=== PATIENT | female | born 1965 | race Caucasian/White ===

== ENCOUNTER → 2017-06-05 | Outpatient (CLI) | payer BC ==
[~2017-06-05] MED LIST: ATEN50TA8 PO; ATOR-54 PO; LISI-461 PO; OMEGCAP2 PO
--- NOTE | 2017-06-06 14:12 | MAMMOGRAPHY REPORT ---
BILATERAL DIGITAL SCREENING MAMMOGRAM TOMOSYNTHESIS WITH CAD: 06/05/2017 CLINICAL HISTORY: Routine screening. TECHNIQUE: Breast tomosynthesis in addition to standard 2D mammography was performed. Current study was also evaluated with a Computer Aided Detection (CAD) system. COMPARISON: Comparison is made to exams dated: 06/04/2016 mammogram, 05/31/2015 mammogram, and 013 mammogram - [facility]. BREAST COMPOSITION: There are scattered areas of fibroglandular density in both breasts. FINDINGS: No suspicious masses, calcifications, or areas of architectural distortion are noted in ei ther breast. There has been no significant interval change compared to prior exams. IMPRESSION: ACR BI-RADS CATEGORY 1: NEGATIVE There is no mammographic evidence of malignancy. A 1 year screening mammogram is recommended. The pa tient will receive written notification of the results. Approximately 10% of breast cancers are not detected with mammography. A negative mammographic report should not delay biopsy if a clinically suggestive mass is present. Meghan Page M.D. ah/:06/05/2017 15:58:48 [employer] Designer: Magalie KUMARI(R)(M), [facility] letter sent: Normal 1/2 BI-RADS Code: ACR BI-RADS Category 1: Negative
== END | disposition home or self-care (01) ==
LOC: C.MAMM 15:15
PROVIDERS: ATTEND Physician Assistant
DX: Z12.31 Encounter for screening mammogram for malignant neoplasm of breast (principal)

== ENCOUNTER → 2017-06-13 | Day surgery (SDC) | payer BC ==
[2016-10-17 12:39] VITALS: BMI 27.0
[2017-06-04 12:30] VITALS: BMI 27.0
[~2017-06-13] VITALS: Ht 172.7 cm; Wt 82.7 kg
[~2017-06-13] MED LIST changes: +LIDOCAINE HCL 2% 2 ML VIAL (20MG/ML) ONE; +MIDAZOLAM HCL 1 MG/ML 2ML VIAL ONE; +ONDANSETRON INJ 2 MG/ML 2 ML VIAL ONE; +PROPOFOL IV EMULSION 10 MG/ML 20 ML VIAL IV ONE; +SODIUM CHLORIDE 0.9% 500ML 500 ML IV ONE
[2017-06-13 09:21] VITALS: Ht 172.7 cm; Wt 82.7 kg
--- NOTE | 2017-06-13 09:38 | Endo History and Physical ---
History & Physical Date of Service: Jun 13, 2017. Chief Complaint: FAMILY HX COLON CANCER-MOTHER, SCREENING FOR CANCER Referring Physician: DR CORDOVA History of Present Illness 52 yo CF who presents for colonoscopy secondary to family history of colon cancer (Mother). Past Surgical History Hx Cardiac Surgery: No Hx Internal Defibrillator: No Hx Pacemaker: No Hx Abdominal Surgery: Yes (PARTIAL HYSTERECTOMY) Hx of Implantable Prosthesis: No Hx Post-Op Nausea and Vomiting: No Hx Cancer Surgery: No Hx Thoracic Surgery: No Hx Orthopedic: No Hx Urinary Tract Surgery: No Family History Colon CA Social History Smoking Status: Current Every Day Smoker Hx Substance Use: No Hx Alcohol Use: No Allergies Coded Allergies: Penicillins (Verified Allergy, Unknown, THROAT CLOSING, HIVES, 06/04/17) Current Medications Reported Home Medications Medications Dose Route/Sig Max Daily Dose Days Date Category Fish Oil ([place]-3 Fatty Acids) 1 Cap Cap 1 Cap PO HS 10/17/16 Reported Lipitor (Atorvastatin) 20 Mg Tab 20 Mg PO HS 10/17/16 Reported Zestril (Lisinopril) 10 Mg Tab 10 Mg PO QAM 10/17/16 Reported Tenormin (Atenolol) 50 Mg Tab 50 Mg PO QAM 10/17/16 Reported Vital Signs Weight (Kilograms): 82.73 Height (Feet): 5 Height (Inches): 8 Date Time Temp Pulse Resp B/P (MAP) Pulse Ox O2 Delivery O2 Flow Rate FiO2 06/13/17 09:28 36.8 80 20 130/82 (98) 95 Room Air Physical Exam General Appearance: WD/WN, no apparent distress Respiratory/Chest: Auscultation: breath sounds normal Cardiovascular: Heart Auscultation: RRR Abdomen: Bowel Sounds: normal Inspection & Palpation: soft, non-distended, no tenderness, guarding & rebound Assessment and Plan Assessment: 52 yo CF who presents for colonoscopy secondary to family history of colon cancer (Mother). Plan: Proceed with colonoscopy.
--- NOTE | 2017-06-13 10:25 | GI REPORT ---
Procedure Date: 06/13/2017 9:27 AM Procedure: Colonoscopy Indications: Family history of colon cancer in a first-degree relative Medicines: Monitored Anesthesia Care Complications: No immediate complications. Estimated Blood Loss: Estimated blood loss: none. Procedure: Pre-Anesthesia Assessment: - Prior to the procedure, a History and Physical was performed, and patient medications and allergies were reviewed. The patient's tolerance of previous anesthesia was also reviewed. The risks and benefits of the procedure and the sedation options and risks were discussed with the patient. All questions were answered, and informed consent was obtained. Prior Anticoagulants: The patient has taken no previous anticoagulant or antiplatelet agents. ASA Grade Assessment: II - A patient with mild systemic disease. After reviewing the risks and benefits, the patient was deemed in satisfactory condition to undergo the procedure. After I obtained informed consent, the scope was passed under direct vision. Throughout the procedure, the patient's blood pressure, pulse, and oxygen saturations were monitored continuously. The scope was introduced through the anus and advanced to the terminal ileum. The colonoscopy was performed without difficulty. The patient tolerated the procedure well. The quality of the bowel preparation was good. The terminal ileum, ileocecal valve, appendiceal orifice, and rectum were photographed. Findings: The perianal and digital rectal examinations were normal. Seven sessile polyps were found in the rectum and in the sigmoid colon. The polyps were 4 to 10 mm in size. These polyps were removed with a hot snare. Resection and retrieval were complete. Multiple small-mouthed diverticula were found in the sigmoid colon. Non-bleeding internal hemorrhoids were found during retroflexion. The hemorrhoids were small. Impression: - Seven 4 to 10 mm polyps in the rectum and in the sigmoid colon, removed with a hot snare. Resected and retrieved. - Diverticulosis in the sigmoid colon. - Non-bleeding internal hemorrhoids. Recommendation: - Resume previous diet. - Continue present medications. - Repeat colonoscopy for surveillance based on pathology results. - Return to primary care physician as previously scheduled. Juan Gan DO 06/13/2017 10:25:01 AM This report has been signed electronically. Note Initiated On: 06/13/2017 9:27 AM I attest to the content of the Intraoperative Record and orders documented therein, exceptions below
[2017-06-13 10:51] VITALS: BP 124/70; PULSE 69; O2SAT 96
--- NOTE | 2017-06-13 11:00 | Anesthesiology Progress Note ---
Anesthesia Post Op Note Date & Time Jun 13, 2017 at 11:00 Vital Signs Pain Intensity: 0 Vital Signs Past 12 Hours Date Time Temp Pulse Resp B/P (MAP) Pulse Ox O2 Delivery O2 Flow Rate FiO2 06/13/17 10:51 69 20 124/70 (88) 96 Room Air 06/13/17 10:37 77 18 128/66 (86) 94 Room Air 06/13/17 10:23 82 16 91/60 (70) 95 Room Air 06/13/17 09:28 36.8 80 20 130/82 (98) 95 Room Air Notes Mental Status: alert / awake / arousable, participated in evaluation Pt Amnestic to Procedure: Yes Nausea / Vomiting: adequately controlled Pain: adequately controlled Airway Patency, RR, SpO2: stable & adequate BP & HR: stable & adequate Hydration State: stable & adequate Anesthetic Complications: no major complications apparent
--- NOTE | 2017-06-13 11:30 | Discharge Instructions ---
Endoscopy Patient Instructions Date / Procedure(s) Performed Jun 13, 2017. Colonoscopy Allergy Information Coded Allergies: Penicillins (Verified Allergy, Unknown, THROAT CLOSING, HIVES, 06/04/17) Discharge Date / Findings Jun 13, 2017. Colon polyps Rectal polyps Diverticulosis Internal hemorrhoids Medication Instructions OK to resume all medications today as prescribed Reported Home Medications Medications Dose Route/Sig Max Daily Dose Days Date Category Fish Oil ([place]-3 Fatty Acids) 1 Cap Cap 1 Cap PO HS 10/17/16 Reported Lipitor (Atorvastatin) 20 Mg Tab 20 Mg PO HS 10/17/16 Reported Zestril (Lisinopril) 10 Mg Tab 10 Mg PO QAM 10/17/16 Reported Tenormin (Atenolol) 50 Mg Tab 50 Mg PO QAM 10/17/16 Reported Provider Instructions Activity Restrictions - No exercising or heavy lifting for 24 hours. - Do not drink alcohol the day of the procedure. - Do not drive a car or operate machinery until the day after the procedure. - Do not make any important decisions or sign important papers in 24 hours after the procedure. Following Day: - Return to full activity which may include returning to work/school. Diet Start your diet with liquids and light foods (jello, soup, juice, toast). Then eat your usual diet if not nauseated. Treatment For Common After Affects For mild abdominal pain, bloating, or excessive gas: - Rest - Eat lightly - Lie on right side Follow-Up Information Follow-up with DR CORDOVA as scheduled Anesthesia Information What You Should Know You have had a procedure that required some medicine to reduce anxiety and discomfort. This treatment is called moderate sedation. After receiving the treatment, you may be sleepy, but you will be able to breathe on your own. The effects of the treatment may last for several hours. Follow these instructions along with Activity/Diet recommendations noted above: * Do NOT do anything where dizziness or clumsiness would be dangerous. * Rest quietly at home today, then you can be up and about tomorrow. * Have a responsible person stay with you the rest of today. * You may have had an I.V. today. If so, you may take the dressing off later today. Recommendations Call your doctor if: * Trouble breathing * Continuous vomiting for more than 24 hours * Temperature above 101 degrees * Severe abdominal pain or bloating * Pain not relieved by pain medicine ordered * There is increased drainage or redness from any incision * A large amount of rectal bleeding greater than 2-3 tablespoons. (If you had a polyp/s removed or have hemorrhoids, a small amount of blood - from the rectum is to be expected.) * You have any unanswered questions or concerns. IN THE EVENT OF A SERIOUS EMERGENCY, GO TO THE NEAREST EMERGENCY ROOM Your discharge instructions were prepared by provider Juan Gan. Patient Instructions Signature Page Pily Doyle Patient (or Guardian) Signature/Date: I have read and understand the instructions given to me by my caregivers. Caregiver/RN/Doctor Signature/Date: The above-named patient and/or guardian has received patient instructions on this date. + Original Patient Signature Page (only) stays with chart. Please make copy for patient.
== END | disposition home or self-care (01) ==
LOC: C.GI 09:08
PROVIDERS: ATTEND Internal Medicine
DX: Z12.11 Encounter for screening for malignant neoplasm of colon (principal); K62.1 Rectal polyp; D12.5 Benign neoplasm of sigmoid colon; K64.8 Other hemorrhoids; K57.30 Diverticulosis of large intestine without perforation or abscess without bleeding; Z80.0 Family history of malignant neoplasm of digestive organs; Z90.711 Acquired absence of uterus with remaining cervical stump; F17.200 Nicotine dependence, unspecified, uncomplicated; I10 Essential (primary) hypertension; E78.5 Hyperlipidemia, unspecified

== ENCOUNTER 2022-12-10 12:57 | Observation (INO) ==
--- NOTE | 2022-12-10 13:33 | XRay Report ---
XR chest 1V not portable CLINICAL HISTORY: Chest pain, nonspecific TECHNIQUE: Single frontal radiograph of the chest was obtained. Comparison: Comparison is made to chest and abdomen radiographs 11/11/2020 FINDINGS: No lines and tubes are seen. The cardiomediastinal silhouette is normal. The lungs are clear. No evid ence of pleural effusion or pneumothorax. IMPRESSION: No acute chest disease. ACT 112: Negative or not required by law. Electronically signed by: Kris Todd M.D. 12/10/2022 1:32 PM
[2022-12-10 13:37] LABS: Basophils # (auto) 0.04 K/uL (0-0.2); Basophils % (auto) 0.3 %; Eosinophils # (auto) 0.24 K/uL (0-0.50); Eosinophils % (auto) 1.7 %; Hematocrit (blood only) 38.9 % (37.0-47.0); Hemoglobin 13.3 g/dl (12.0-16.0); Immature Granulocytes # (auto) 0.06 K/uL (0.01-0.20); Immature Granulocytes % (auto) 0.4 %; Lymphocytes # (auto) 2.27 K/uL (1.2-3.4); Lymphocytes % (auto) 15.9 %; Mean Corpuscular Hemoglobin 30.9 pg (25.0-34.0); Mean Corpuscular Hgb Conc 34.2 g/dL (32.0-36.0); Mean Corpuscular Volume 90.3 fL (80.0-100.0); Mean Platelet Volume 8.6 fL (9.4-12.4); Monocytes # (auto) 0.89 K/uL (0.11-0.59); Monocytes % (auto) 6.2 %; Neutrophils % (auto) 75.5 %; Platelet Count 342 K/uL (130-400); RDW Coefficient of Variation 12.7 % (11.5-14.5); RDW Standard Deviation 41.7 fL (36.4-46.3); Red Blood Count 4.31 M/uL (4.20-5.40)
[2022-12-10 13:50] LABS: Albumin Globulin Ratio 1.7 (0.9-2); Albumin Level 4.4 gm/dl (3.4-5.0); BUN Creatinine Ratio 14.5 (10-20); Bilirubin,Total 0.3 mg/dl (0.2-1.0); Calcium 9.5 mg/dl (8.6-10.3); Creatinine Clr Calc Pharmacy 84.9 ml/min; Est GFR (African American) 90.1 ml/min; Est GFR (Non-African American) 77.7 ml/min; Globulin 2.6 gm/dl (2.5-4.0); Potassium 4.3 mmol/L (3.5-5.1)
[2022-12-10 13:56] LABS: Troponin I High Sensitivity 3.3 pg/ml (0-14)
[2022-12-10 14:05] LABS: Partial Thromboplastin Ratio 0.9; Partial Thromboplastin Time 25.1 Seconds (21.0-31.0); Prothrombin Time 10.4 Seconds (9.0-12.0)
--- NOTE | 2022-12-10 15:00 | Emergency Department Note ---
Impression & Plan Atypical chest pain, Hypertension, Hyperlipidemia ED Provider Note NAME: AUSTIN COLON AGE: 57 SEX: F : 1965 ARRIVES VIA: Walk-In INFORMANT: Patient, ED PROVIDER(S): Ernesto Rodas MD CHIEF COMPLAINT: Chest pain MEDICAL DECISION MAKING: Patient is presented due to concern for intermittent chest pain over 1 month. IV was established blood was obtained along with an EKG troponin and chest x- ray. Patient's initial EKG and troponin are fairly unremarkable. No obvious ST elevations and troponin is negative. The patient does have risk factors and has moderate risk heart score. I did speak with on-call cardiology Dr. Sewell given the time of day unable to complete his stress echocardiogram at this time. I did discuss inpatient treatment with stress test in the morning versus close outpatient follow-up given the moderate risk heart score. The patient preferred to stay inpatient to have testing completed in the morning. Patient was ordered the rest of the full dose aspirin as the patient had already taken 2 baby aspirin today. I did speak the on-call hospitalist service Dr. Delarosa and the patient was admitted to medicine service. Prior /Outside records reviewed: None Differential diagnosis: Cardiac ischemia, aortic dissection, pulmonary embolism, pneumothorax, pneumonia, pericarditis, myocarditis, esophageal rupture, GERD, cholecystitis, pancreatitis, musculoskeletal, as well as other pathologies. Diagnostics, as interpreted by me: ECG: Normal sinus rhythm, rate of 78, normal intervals normal axis no ST elevations. No significant change for comparison March 04, 2019 Cardiac monitoring: An order was placed for continuous cardiac monitoring. The monitor shows a rate of 72 with sinus rhythm. Patient was placed on pulse oximetry Medical decision rules: HEART score Imaging studies: See below I informally reviewed the patient's chest x-ray which shows no obvious evidence of pneumothorax or pleural effusion. HPI: Patient presents due to concern for chest pain. It has been intermittent in nature over the last month. The patient states that symptoms does wake her from sleep. Patient describes it as left-sided nonradiating occasionally exertional but sometimes not. Patient states that it is burning in nature. The patient has been trialing ibuprofen as well as aspirin and sometimes this does improve her symptoms. Patient denies any falls or trauma. The patient does not complain of reproducible chest wall pain or left upper extremity pain. The patient states that the pain does radiate down her left arm. Patient denies any recent overuse or injury to the left chest or left arm. Patient is right-hand dominant. Patient does have family history of heart attack and stroke before the age of 65. Patient has no known history of heart or lung disease. Patient recently quit smoking about 2 weeks ago. The patient does have a history of hypertension hyperlipidemia. Patient denies any leg swelling or calf pain. No recent surgeries procedures or hospitalizations. PAST MEDICAL HISTORY: See Below PAST SURGICAL HISTORY: See Below SOCIAL HISTORY: See Below HOME MEDICATIONS: See Below ALLERGIES: See Below VITALS: See Below PHYSICAL EXAMINATION: GENERAL: NAD, wearing a mask, non-toxic. EYE EXAM: Normal conjunctiva. PERRL, no anisocoria and EOM's grossly intact w/o pain. NECK: Supple, no nuchal rigidity, no adenopathy, non-tender. No signs of meningismus. FROM of the neck with good chin to chest and neck extension. No stridor. LUNGS: Clear to auscultation. Normal chest wall mechanics. Chest: No reproducible anterior chest wall pain HEART: NSR, no MRG. ABDOMEN: Abdomen soft, non-tender, no masses, no rebound or guarding. BACK: No CVA TTP. SKIN: No rashes and no bruising. UPPER EXTREMITIES: Upper extremities are grossly normal. No reproducible left upper extremity pain. LOWER EXTREMITIES: Grossly normal, no edema. Negative Homans' sign bilaterally. NEURO EXAM: A&O x3, cranial nerves II-XII grossly intact, normal speech, moves all 4 extremities. Past Med/Surg History Medical History History of colon polyps Hyperlipidemia Hypertension Surgical History History of colonoscopy (11/2020) +TBA, 2 HP History of detached retina repair R eye History of hysterectomy with unilateral oophorectomy still w/ R ovary Hx of bilateral cataract extraction Family History Mother , age 71 Colorectal cancer, Onset Age: 69 Diabetes Glaucoma Sister Diabetes Father , age 81 Coronary heart disease S/P coronary artery bypass graft x 4 Myocardial infarction Social History Smoking Status: Former smoker Tobacco Type: Cigarettes Age Started Using Tobacco: 29; Cigarettes Per Day: 7; Smoking End Date: 2 weeks ago; Second Hand Exposure: No; Hx Alcohol Use: Yes Hx Substance Use: No Preferred Language: Mongolian Communication Ability: Effective Hearing Ability: Normal Conference Organizer Required: No Beliefs That Will Affect Care: None marital status: marital status details: previously Current Living Situation: Spouse current occupational status: employed current occupation: [employer] How many Children do You have: 1 How many Children do You have Comment: son age 21 Other Information That Helps Us Care for You: No Feels Safe at Home: Yes Safety Concerns: Feels Safe At This Time Childhood Exposure to Second-Hand Smoke: Yes caffeine: Yes during the past year weight has: remained stable Dental Care, Regularly: Yes Physical Activity Frequency: Daily Seatbelt Use: always Sunscreen Use: Yes Assistive Devices: Denture - Upper Allergies Allergies Allergy/AdvReac Type Severity Reaction Status Date / Time sulfamethoxazole Allergy Mild Hives Verified 12/10/22 16:25 [From Bactrim] trimethoprim [From Bactrim] Allergy Mild Hives Verified 12/10/22 16:25 Penicillins Allergy Unknown THROAT Verified 12/10/22 16:25 CLOSING, HIVES Home Meds Home Medications Medication Instructions Recorded Confirmed ezetimibe 10 mg tablet 10 mg PO HS 12/10/22 12/10/22 Previous Rx's Medication Instructions Recorded betamethasone dipropionate 0.05 % 1 applic topical BID PRN rash #45 09/24/21 topical cream grams atenolol 50 mg tablet 50 mg PO QAM #30 tabs 09/25/22 atorvastatin 10 mg tablet 10 mg PO PM #30 tabs 09/25/22 lisinopril 10 mg tablet 10 mg PO QAM #30 tabs 09/25/22 nicotine 14 mg/24 hr daily 1 patch transdermal DAILY #28 ea 12/10/22 transdermal patch Results & Data (ED) Vital Signs Vital Signs - 24 hr 12/10/22 13:02 12/10/22 15:11 12/10/22 15:06 Temperature 36.5 C Temperature Source Temporal Artery Scan Pulse Rate 83 72 Pulse Rate from SpO2 Sensor 72 Pulse Rhythm Regular Respiratory Rate 20 12 Respiratory Effort / Characteristics Non-Labored Spontaneous Respiratory Depth Normal Respiratory Pattern Regular Blood Pressure 176/90 H Blood Pressure Mean 118 Pulse Oximetry 97 99 Oxygen Delivery Method Room Air Room Air Sepsis Recent Fever Within 48 Hours No Sepsis New/Unexplained Change in Mental Status No Sepsis Action Taken by Nursing No Action Required 12/10/22 15:30 12/10/22 16:00 12/10/22 16:24 Temperature Temperature Source Pulse Rate 72 69 75 Pulse Rate from SpO2 Sensor 72 70 Pulse Rhythm Respiratory Rate 17 17 Respiratory Effort / Characteristics Respiratory Depth Respiratory Pattern Blood Pressure Blood Pressure Mean Pulse Oximetry 98 97 Oxygen Delivery Method Sepsis Recent Fever Within 48 Hours Sepsis New/Unexplained Change in Mental Status Sepsis Action Taken by Snf Medications Current Medication List: was personally reviewed by me Laboratory Data Attestation: I reviewed the patient's lab results. 12/10/22 13:07 12/10/22 13:07 Lab Results 12/10/22 12/10/22 12/10/22 Range/Units 13:07 13:07 13:07 WBC 14.30 H (4.8-10.8) K/ul RBC 4.31 (4.20-5.40) M/uL Hgb 13.3 (12.0-16.0) g/dl Hct 38.9 (37.0-47.0) % MCV 90.3 (80.0-100.0) fL MCH 30.9 (25.0-34.0) pg MCHC 34.2 (32.0-36.0) g/dL RDW Std Deviation 41.7 (36.4-46.3) fL RDW Coeff of Mello 12.7 (11.5-14.5) % Plt Count 342 (130-400) K/uL MPV 8.6 L (9.4-12.4) fL Immature Gran % (Auto) 0.4 % Neut % (Auto) 75.5 % Lymph % (Auto) 15.9 % Winkler % (Auto) 6.2 % Eos % (Auto) 1.7 % Baso % (Auto) 0.3 % Neut # (Auto) 10.80 H (1.40-6.50) K/uL Lymph # (Auto) 2.27 (1.2-3.4) K/uL Winkler # (Auto) 0.89 H (0.11-0.59) K/uL Eos # (Auto) 0.24 (0-0.50) K/uL Baso # (Auto) 0.04 (0-0.2) K/uL Immature Gran # (Auto) 0.06 (0.01-0.20) K/uL PT 10.4 (9.0-12.0) Seconds INR 1.0 (0.9-1.1) APTT 25.1 (21.0-31.0) Seconds PTT Ratio 0.9 Sodium 141 (136-145) mmol/L Potassium 4.3 (3.5-5.1) mmol/L Chloride 107 (98-107) mmol/L Carbon Dioxide 28 (21-32) mmol/L Anion Gap 6 (3-11) BUN 12 (6-23) mg/dl Creatinine 0.83 (0.6-1.2) mg/dl Est Cr Clr Drug Dosing 84.9 ml/min Est GFR ( Amer) 90.1 ml/min Est GFR (Non-Af Amer) 77.7 ml/min BUN/Creatinine Ratio 14.5 (10-20) Glucose 101 H (70-99(Fasting)) mg/dl Calcium 9.5 (8.6-10.3) mg/dl Total Bilirubin 0.3 (0.2-1.0) mg/dl AST 13 (13-39) U/L ALT 16 (7-52) U/L Alkaline Phosphatase 64 (34-104) U/L Troponin I High Sens 3.3 (0-14) pg/ml Total Protein 7.0 (6.0-8.3) gm/dl Albumin 4.4 (3.4-5.0) gm/dl Globulin 2.6 (2.5-4.0) gm/dl Albumin/Globulin Ratio 1.7 (0.9-2) SARS-CoV-2, RNA, NAAT (NEGATIVE) 12/10/22 Range/Units 16:00 WBC (4.8-10.8) K/ul RBC (4.20-5.40) M/uL Hgb (12.0-16.0) g/dl Hct (37.0-47.0) % MCV (80.0-100.0) fL MCH (25.0-34.0) pg MCHC (32.0-36.0) g/dL RDW Std Deviation (36.4-46.3) fL RDW Coeff of Mello (11.5-14.5) % Plt Count (130-400) K/uL MPV (9.4-12.4) fL Immature Gran % (Auto) % Neut % (Auto) % Lymph % (Auto) % Winkler % (Auto) % Eos % (Auto) % Baso % (Auto) % Neut # (Auto) (1.40-6.50) K/uL Lymph # (Auto) (1.2-3.4) K/uL Winkler # (Auto) (0.11-0.59) K/uL Eos # (Auto) (0-0.50) K/uL Baso # (Auto) (0-0.2) K/uL Immature Gran # (Auto) (0.01-0.20) K/uL PT (9.0-12.0) Seconds INR (0.9-1.1) APTT (21.0-31.0) Seconds PTT Ratio Sodium (136-145) mmol/L Potassium (3.5-5.1) mmol/L Chloride (98-107) mmol/L Carbon Dioxide (21-32) mmol/L Anion Gap (3-11) BUN (6-23) mg/dl Creatinine (0.6-1.2) mg/dl Est Cr Clr Drug Dosing ml/min Est GFR ( Amer) ml/min Est GFR (Non-Af Amer) ml/min BUN/Creatinine Ratio (10-20) Glucose (70-99(Fasting)) mg/dl Calcium (8.6-10.3) mg/dl Total Bilirubin (0.2-1.0) mg/dl AST (13-39) U/L ALT (7-52) U/L Alkaline Phosphatase (34-104) U/L Troponin I High Sens (0-14) pg/ml Total Protein (6.0-8.3) gm/dl Albumin (3.4-5.0) gm/dl Globulin (2.5-4.0) gm/dl Albumin/Globulin Ratio (0.9-2) SARS-CoV-2, RNA, NAAT NEGATIVE (NEGATIVE) Administered Medications Atorvastatin Calcium (Atorvastatin 10 Mg Tab) 10 mg PO PM FREDY Stop: 01/09/23 20:59 Last Admin: 12/10/22 21:48 Dose: 10 mg Documented By: MAGDALENA Ezetimibe (Ezetimibe 10 Mg Tablet) 10 mg PO HS FREDY Stop: 01/09/23 20:59 Last Admin: 12/10/22 21:48 Dose: 10 mg Documented By: MAGDALENA Pantoprazole Sodium 40 mg/ (Syringe) 10 mls @ 5 mls/min IV BID FREDY Stop: 01/09/23 20:59 Last Admin: 12/10/22 21:48 Dose: 5 mls/min Documented By: MAGDALENA Famotidine 20 mg/ Syringe 5 mls @ 2.5 mls/min IV Q12 FREDY Stop: 01/09/23 20:59 Last Admin: 12/10/22 21:48 Dose: 2.5 mls/min Documented By: MAGDALENA Discontinued Medications Al Hydrox/Mg Hydrox/Simethicone (Gi Cocktail Ed Use) Confirm Administered Dose 1 dose PO .STK-MED ONE Stop: 12/10/22 18:38 Last Admin: 12/10/22 18:40 Dose: 1 dose Documented By: KARMA Aspirin (Aspirin Chew 324 Mg) 162 mg PO NOW STA Stop: 12/10/22 15:59 Last Admin: 12/10/22 16:09 Dose: 162 mg Documented By: KARMA Al Hydrox/Mg Hydrox/Simethicone 18 ml/ Lidocaine HCl 6 ml/ BARCODE IDENTIFIER 1 each 0 ml PO ONE ONE Stop: 12/10/22 17:45 Last Admin: 12/10/22 18:40 Dose: Not Given Documented By: KARMA Pantoprazole Sodium 40 mg/ (Syringe) 10 mls @ 5 mls/min IV NOW ONE Stop: 12/10/22 15:59 Last Admin: 12/10/22 16:26 Dose: 5 mls/min Documented By: KARMA Imaging Data Radiologist's Impression: Chest X-Ray 12/10/22 13:02 XR chest 1V not portable CLINICAL HISTORY: Chest pain, nonspecific TECHNIQUE: Single frontal radiograph of the chest was obtained. Comparison: Comparison is made to chest and abdomen radiographs 11/11/2020 FINDINGS: No lines and tubes are seen. The cardiomediastinal silhouette is normal. The lungs are clear. No evidence of pleural effusion or pneumothorax. IMPRESSION: No acute chest disease. ACT 112: Negative or not required by law. Electronically signed by: Kris Todd M.D. 12/10/2022 1:32 PM Discharge Plan Visit Data Chief Complaint: Chest Pain Stated Complaint: CHEST PAINS AND PAIN DOWN ARM ED Provider: Ernesto Rodas Discharge Problem: Atypical chest pain, Hypertension, Hyperlipidemia Patient Disposition: Admitted As Inpatient Discharge Instructions Interventions: ED Discharge Assessment Last Done: 12/10/22 17:35
[2022-12-10] MEDS ORDERED: PANTOprazole 40 MG in SYRINGE 0 ML IV ONE (15:58)
[2022-12-10] MEDS ORDERED: ASPIRIN CHEW 324 MG PO STA (15:58)
--- NOTE | 2022-12-10 16:14 | History & Physical Report ---
Date of Service December 10, 2022 Assessment & Plan (1) Chest pain: Plan: 57-year-old female with extensive family history of ME, hyperlipidemia, hypertension who presents for evaluation of recurring chest pain at night, and shortness of breath with reduced exercise tolerance during the day. Chest pain Patient with multiple episodes increasing of chest pain which radiates to her left arm and neck. These are associated with sweating, but not shortness of breath at night. She has noted some additional worsening shortness of breath trying to go up and down stairs in the last month She has been taking ibuprofen, Motrin, Tylenol, and Advil for her pain at [facility]. Discussed that ibuprofen/Motrin/Advil are all the same medication, and she is taking supratherapeutic doses which can worsen gastritis and also be bad for her kidneys and heart. She reports she thinks this sometimes helps pain in her shoulder, but does not help her nighttime episodes Troponin 3.3 on admission, highly reassuring. 2-hour troponin pending EKG without acute findings of ischemia Moderate risk heart score Patient's symptoms have lasted 10 to 15 minutes, it is possible that these were nonsustained because of elevated troponin and she does have a very high risk family history with multiple deaths around her age however ongoing symptoms, severe episodes overnight, negative normal EKG are all reassuring for noncardiac. Reviewed with patient; due to her multiple family deaths and additional worsening shortness of breath going up stairs which seems separate she is not comfortable following up as an outpatient for stress test. We will order a.m. treadmill stress test based on moderate risk rule out Troponins trended overnight No heparinization indicated GERD treatment as noted Gastritis Patient taking up to 10 aspirin daily in addition to multiple forms of ibuprofen for shoulder pain without significant benefit. Counseled that these are all NSAIDs, and harmful to her stomach and be harmful to her heart and kidneys No JAMES on admission PPI, Pepcid, GI cocktail ordered Hypertension Continue home meds Hyperlipidemia Continue is Atimos/atorvastatin DVT prophylaxis: Lovenox Diet: Heart healthy, n.p.o. at midnight for stress test Disposition: Medical telemetry CODE STATUS: Full code (2) History of colon polyps: (3) Hypertension: (4) Gastritis: History of Present Illness Primary Care Provider: DO Pily Gardner is a 57yo F who presents recurrent chest pain. "Ching" Irish report she has had chest pain in her chest with shoots into her neck and L arm, and she is very hot and sweaty when it happens. Lasts 10-15 minutes and hurt 20/10, and gradually recents. No pain at bedside. She has been trying tylenol, advil, and ibuprofen but has not helped much. Symptoms are gradually worsening, and seem to be worse at night. In the last week she has had increased shortness of breath and difficulty going up a flight of stairs, but she does not bring out her chest pain. 10x aspirin per day and 2x 600mg ibuprofen per day, and 6x tylenol per day, and 6x motrin per day which does seem to help her pain. NSAIDs/Tylenol do make the pain improve, but notes her pain recurrs at night and she has to raise her head above her head to get the pain to go away. Has been doin this for one month. Hx HTN, did take this morning HLD: On atorvastain No other medical problems Smoked 25years, ~0.75ppd. Quit tobacco 2 weeks, doing well with a patch. Was scared because brother 1yr has had 6x ME with 7 stents, older sister by 8 years has had 3x ME with stents and hypothermia protocol and recovery with memory loss, father passed of cardiac arrest after quadrule bipass followed by repeat ME 3 months later, mother with DM HTN and of cancer. +epigastric pain with ibuprofen and aspirin use. no melena or brbpr. +loose bowels sometimes green sometimes brown +old systolic murmur NO history of blood clots. No pain with breathing. no orthopnea. Had covid 2 years ago Medical History: Reviewed Medications: Reviewed Surgical History: Reviewed. hx hysterectomy at age 39. Retinal detachment replacement, cataract bilaterally. Family history: Reviewed, see above Allergies: Reviewed. PCN. No contrast allergy. Social History: Recent tobacco cessaion, no etoh Code Status:Full Code Allergies Allergy/AdvReac Type Severity Reaction Status Date / Time sulfamethoxazole Allergy Mild Hives Verified 12/10/22 16:25 [From Bactrim] trimethoprim [From Bactrim] Allergy Mild Hives Verified 12/10/22 16:25 Penicillins Allergy Unknown THROAT Verified 12/10/22 16:25 CLOSING, HIVES Home Medications Medication Instructions Recorded Confirmed Type betamethasone dipropionate 0.05 % 1 applic topical BID PRN rash #45 09/24/21 12/10/22 Rx topical cream grams atenolol 50 mg tablet 50 mg PO QAM #30 tabs 09/25/22 12/10/22 Rx atorvastatin 10 mg tablet 10 mg PO PM #30 tabs 09/25/22 12/10/22 Rx lisinopril 10 mg tablet 10 mg PO QAM #30 tabs 09/25/22 12/10/22 Rx ezetimibe 10 mg tablet 10 mg PO HS 12/10/22 12/10/22 History nicotine 14 mg/24 hr daily 1 patch transdermal DAILY #28 ea 12/10/22 Rx transdermal patch Past Med/Surg History Medical History History of colon polyps Hyperlipidemia Hypertension Surgical History History of colonoscopy (11/2020) +TBA, 2 HP History of detached retina repair R eye History of hysterectomy with unilateral oophorectomy still w/ R ovary Hx of bilateral cataract extraction Family History Mother , age 71 Colorectal cancer, Onset Age: 69 Diabetes Glaucoma Sister Diabetes Father , age 81 Coronary heart disease S/P coronary artery bypass graft x 4 Myocardial infarction Social History Smoking Status: Current every day smoker Tobacco Type: Cigarettes Age Started Using Tobacco: 29; Cigarettes Per Day: 5-7; Second Hand Exposure: No; Hx Alcohol Use: No Hx Substance Use: No Preferred Language: Ethiopian Communication Ability: Effective Hearing Ability: Normal 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 NAD. Cooperative. HEENT: Atraumatic, normocephalic. Pupils equal and reactive to light. Vision and hearing grossly intact Pulm: CTAB A&P. -wheezes, -rales, -rhonchi. Symmetrical chest rise. No increased work of breathing. No respiratory distress. Cardiac: RRR, systolic murmur. Radial pulses intact and symmetrical. Abdominal: Epigastric tenderness on palpation, otherwise nondistended/soft/no rebound/nontender in other quadrants Extremities: No edema. Sensation of soft touch intact in hands and feet. Moves all extremities equally Results & Data Results & Data Vital Signs (Past 12 Hours) Vital Signs Temp Pulse Resp BP Pulse Ox O2 Del Method 12/10/22 15:11 Room Air 12/10/22 13:02 36.5 C 83 20 176/90 H 97 Room Air PG Care Time/CCT Total # of Minutes Spent Total Time Spent with Patient: Total time spent is greater than 50% in coordination of care (as documented) at patient's floor/unit and/or counseling patient: Coding Level of Care Code 65983 INT INP/OBS CARE 2/55MIN Diagnoses Chest pain R07.9 History of colon polyps Z86.010 Hypertension I10 Gastritis K29.70
[2022-12-10] MEDS ORDERED: ALUMINUM/MAGNESIUM SUSP 18 ML, LIDOCAINE VISCOUS 2% SOLN 6 ML, BARCODE IDENTIFIER 1 EACH PO ONE (17:44)
[2022-12-10] MEDS ORDERED: GI COCKTAIL ED USE PO ONE (18:37)
[2022-12-10] MEDS ORDERED: ATORVASTATIN 10 MG TAB PO SCH (21:00)
[2022-12-10] MEDS: FAMOTIDINE 20 MG in SYRINGE 3 ML IV SCH (21:48)
[2022-12-10] MEDS: PANTOprazole 40 MG in SYRINGE 0 ML IV SCH (21:48)
[2022-12-10] MEDS: EZETIMIBE 10 MG TABLET PO SCH (21:48)
[2022-12-11 07:39] LABS: Basophils # (auto) 0.03 K/uL (0-0.2); Basophils % (auto) 0.3 %; Eosinophils # (auto) 0.18 K/uL (0-0.50); Eosinophils % (auto) 1.8 %; Hemoglobin 12.7 g/dl (12.0-16.0); Immature Granulocytes # (auto) 0.03 K/uL (0.01-0.20); Immature Granulocytes % (auto) 0.3 %; Lymphocytes # (auto) 1.71 K/uL (1.2-3.4); Lymphocytes % (auto) 16.9 %; Mean Corpuscular Hemoglobin 30.2 pg (25.0-34.0); Mean Corpuscular Hgb Conc 33.4 g/dL (32.0-36.0); Mean Corpuscular Volume 90.3 fL (80.0-100.0); Mean Platelet Volume 8.7 fL (9.4-12.4); Monocytes # (auto) 0.74 K/uL (0.11-0.59); Monocytes % (auto) 7.3 %; Neutrophils # (auto) 7.45 K/uL (1.40-6.50); Neutrophils % (auto) 73.4 %; Platelet Count 286 K/uL (130-400); RDW Coefficient of Variation 12.7 % (11.5-14.5); RDW Standard Deviation 41.6 fL (36.4-46.3); Red Blood Count 4.21 M/uL (4.20-5.40); White Blood Count 10.14 K/ul (4.8-10.8)
[2022-12-11 07:43] LABS: BUN Creatinine Ratio 13.1 (10-20); Creatinine Clr Calc Pharmacy 72.5 ml/min; Est GFR (African American) 72.8 ml/min; Est GFR (Non-African American) 62.8 ml/min; Potassium 4.4 mmol/L (3.5-5.1)
[2022-12-11] MEDS ORDERED: ATENOLOL 50 MG TABLET PO SCH (09:00)
[2022-12-11] MEDS ORDERED: NITROGLYCERIN SL 0.4 MG/TAB TAB ONE ×2 (09:51→09:52)
--- NOTE | 2022-12-11 10:16 | Pre Anesthesia Assessment ---
Date of Service December 11, 2022 Pre Sedation Assessment Vital Signs Temp Pulse Pulse Pulse Resp BP BP 12/11/22 08:36 37.0 C 76 18 133/75 12/11/22 03:45 36.7 C 69 16 114/68 12/10/22 22:20 70 12/10/22 22:34 36.7 C 71 18 146/72 H 12/10/22 22:10 36.7 C 74 16 140/76 12/10/22 16:24 75 12/10/22 16:00 69 17 12/10/22 15:30 72 17 12/10/22 15:06 72 12 12/10/22 15:11 12/10/22 13:02 36.5 C 83 20 176/90 H Pulse Ox O2 Del Method 12/11/22 08:36 94 Room Air 12/11/22 03:45 94 Room Air 12/10/22 22:20 12/10/22 22:34 96 Room Air 12/10/22 22:10 96 Room Air 12/10/22 16:24 12/10/22 16:00 97 12/10/22 15:30 98 12/10/22 15:06 99 12/10/22 15:11 Room Air 12/10/22 13:02 97 Room Air Cardiovascular + regular rate and + regular rhythm Respiratory + respiratory effort normal Pre-Sedation Airway Assessment Smoking Status: Former smoker Hx Sleep Apnea: No Hx Difficult Intubation: No Short, Thick Neck: No Thyromental Distance: > or= 3.5 Finger Breadths Oral Cavity: + WNL Mallampati Class: III ASA: ASA3 Procedure Planning Contraindications for Sedation: none Current Medications Reviewed: Yes Notes The planned sedation has been discussed with the patient. Informed Consent was obtained. I have identified the patient, determined the appropriateness of sedation and have assessed the patient immediately prior to the procedure. All medicine(s) and interventions are by my order.
[2022-12-11] MEDS: lisinopril 10 MG TAB PO SCH (10:41)
[2022-12-11] MEDS: PANTOprazole 40 MG in SYRINGE 0 ML IV SCH ×2 (10:41→20:13)
[2022-12-11] MEDS: NICOTINE 14 MG/24 HR PATCH TD SCH (10:45)
[2022-12-11] MEDS: FAMOTIDINE 20 MG in SYRINGE 3 ML IV SCH ×2 (10:52→20:17)
[2022-12-11] MEDS ORDERED: niCARdipine HCL INJ 2.5 MG/ML 10 ML AMP ONE (11:37)
[2022-12-11] MEDS ORDERED: MIDAZOLAM HCL 1 MG/ML 2ML VIAL ONE (11:37)
[2022-12-11] MEDS ORDERED: NITROGLYCERIN/D5W 100MCG/ML 20ML SYR ONE (11:37)
[2022-12-11] MEDS ORDERED: fentaNYL citrate PF 100 MCG/2 ML VIAL ONE (11:37)
[2022-12-11] MEDS ORDERED: HEPARIN (PORCINE) 1000 UNIT/ML 10 ML (CATH LAB USE ONLY) ONE (11:37)
--- NOTE | 2022-12-11 11:43 | Cardiology Consultation ---
Date of Consultation December 11, 2022 Assessment & Plan (1) Chest pain: (2) Hypertension: (3) Hyperlipidemia: Plan 1. Chest pain: Certainly she has atypical features. The symptoms occur at rest and are fairly short-lived. However, she did have some exertional symptoms today associated with notable EKG changes. Her symptoms resolved with administration of nitroglycerin. EKG changes also resolved at that time. Curiously the echo images did not demonstrate obvious ischemia. However, considering the persistent nature of her symptoms, her risk factors and family history she has elected to undergo invasive testing to exclude coronary disease. #2. Hypertension #3. Hyperlipidemia History of Present Illness Reason for Consultation: Chest pain Requesting Physician: Lana Attending Physician: Deniz Schwartz MD History of Present Illness The patient is a 57-year-old woman with a history of hypertension hyperlipidemia who has been experiencing symptoms of left-sided chest discomfort for several weeks. The patient states that her symptoms occur primarily at rest. Often times at nighttime. Is described as a fairly severe discomfort in the left upper precordium and left arm. Occasionally it is associated with activity. She cannot describe any specific activity which reliably reproduces her symptoms. The episodes themselves last between 10 and 15 minutes and often respond to aspirin therapy. Some mild dyspnea as well. She believes the symptoms are becoming more frequent and perhaps longer lasting recently. She presented to the emergency room yesterday for an evaluation. There were no objective findings of ischemia yesterday. She underwent exercise echocardiography today which did reproduce her symptoms. The symptoms occurred immediately after exercise. At the time she had her symptoms she had significant EKG changes concerning for ischemia. Based on the nature of her symptoms and stress test findings she was advised to consider coronary angiography. She admits to being more sedentary recently. In the past she performed regular exercise. She has a history of tobacco use. She does not describe orthopnea. No palpitations. No syncope. Allergies Allergy/AdvReac Type Severity Reaction Status Date / Time sulfamethoxazole Allergy Mild Hives Verified 12/10/22 16:25 [From Bactrim] trimethoprim [From Bactrim] Allergy Mild Hives Verified 12/10/22 16:25 Penicillins Allergy Unknown THROAT Verified 12/10/22 16:25 CLOSING, HIVES Home Medications Medication Instructions Recorded Confirmed Type betamethasone dipropionate 0.05 % 1 applic topical BID PRN rash #45 09/24/21 12/10/22 Rx topical cream grams atenolol 50 mg tablet 50 mg PO QAM #30 tabs 09/25/22 12/10/22 Rx atorvastatin 10 mg tablet 10 mg PO PM #30 tabs 09/25/22 12/10/22 Rx lisinopril 10 mg tablet 10 mg PO QAM #30 tabs 09/25/22 12/10/22 Rx ezetimibe 10 mg tablet 10 mg PO HS 12/10/22 12/10/22 History nicotine 14 mg/24 hr daily 1 patch transdermal DAILY #28 ea 12/10/22 Rx transdermal patch Patient History Medical History History of colon polyps Hyperlipidemia Hypertension Surgical History History of colonoscopy (11/2020) +TBA, 2 HP History of detached retina repair R eye History of hysterectomy with unilateral oophorectomy still w/ R ovary Hx of bilateral cataract extraction Family History Mother , age 71 Colorectal cancer, Onset Age: 69 Diabetes Glaucoma Sister Diabetes Father , age 81 Coronary heart disease S/P coronary artery bypass graft x 4 Myocardial infarction Social History Smoking Status: Former smoker Tobacco Type: Cigarettes Age Started Using Tobacco: 29; Cigarettes Per Day: 7; Smoking End Date: 2 weeks ago; Second Hand Exposure: No; Hx Alcohol Use: Yes Hx Substance Use: No Preferred Language: Luxembourger Communication Ability: Effective Hearing Ability: Normal 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 Beliefs That Will Affect Care: None marital status: marital status details: previously Current Living Situation: Spouse current occupational status: employed current occupation: [employer] How many Children do You have: 1 How many Children do You have Comment: son age 21 Other Information That Helps Us Care for You: No Feels Safe at Home: Yes Safety Concerns: Feels Safe At This Time Childhood Exposure to Second-Hand Smoke: Yes caffeine: Yes during the past year weight has: remained stable Dental Care, Regularly: Yes Physical Activity Frequency: Daily Seatbelt Use: always Sunscreen Use: Yes Assistive Devices: Denture - Upper Review of Systems Review of Systems: Per HPI Physical Exam Physical Exam: She is alert and oriented x3. Mood affect appear normal. She answered all questions appropriately. HEENT: Sclerae are anicteric. Pupils are equal and reactive to light and accommodation. Extraocular movements were intact. Neuro: Cranial nerves intact Lungs: Lungs are clear to auscultation bilaterally. There are no rales wheezes or rhonchi. She has normal respiratory effort without use of accessory muscles. There is normal pulmonary excursion. Cardiac: The rhythm was regular. S1 and S2 were normal. There are no murmurs on examination. The PMI was not markedly displaced on palpation. Extremities: Patient has bilateral radial pulses that are equal in intensity. There is no evidence cyanosis or clubbing. There was no evidence of significant peripheral edema bilaterally. Skin: There are no rashes noted on examination today. Results & Data Vital Signs (Past 12 Hours) Vital Signs Temp Pulse Pulse Resp BP Pulse Ox O2 Del Method 12/11/22 11:04 71 12/11/22 08:36 37.0 C 76 18 133/75 94 Room Air 12/11/22 03:45 36.7 C 69 16 114/68 94 Room Air Laboratory Results Abnormal Lab Results 12/10/22 12/10/22 12/10/22 13:07 13:07 13:07 WBC 14.30 H RBC 4.31 Hgb 13.3 Hct 38.9 MCV 90.3 MCH 30.9 MCHC 34.2 RDW Std Deviation 41.7 RDW Coeff of Mello 12.7 Plt Count 342 MPV 8.6 L Immature Gran % (Auto) 0.4 Neut % (Auto) 75.5 Lymph % (Auto) 15.9 Sullivan % (Auto) 6.2 Eos % (Auto) 1.7 Baso % (Auto) 0.3 Neut # (Auto) 10.80 H Lymph # (Auto) 2.27 Sullivan # (Auto) 0.89 H Eos # (Auto) 0.24 Baso # (Auto) 0.04 Immature Gran # (Auto) 0.06 PT 10.4 INR 1.0 APTT 25.1 PTT Ratio 0.9 Sodium 141 Potassium 4.3 Chloride 107 Carbon Dioxide 28 Anion Gap 6 BUN 12 Creatinine 0.83 Est Cr Clr Drug Dosing 84.9 Est GFR ( Amer) 90.1 Est GFR (Non-Af Amer) 77.7 BUN/Creatinine Ratio 14.5 Glucose 101 H Calcium 9.5 Total Bilirubin 0.3 AST 13 ALT 16 Alkaline Phosphatase 64 Troponin I High Sens 3.3 Total Protein 7.0 Albumin 4.4 Globulin 2.6 Albumin/Globulin Ratio 1.7 SARS-CoV-2, RNA, NAAT 12/10/22 12/10/22 12/11/22 16:00 17:18 01:09 WBC RBC Hgb Hct MCV MCH MCHC RDW Std Deviation RDW Coeff of Mello Plt Count MPV Immature Gran % (Auto) Neut % (Auto) Lymph % (Auto) Sullivan % (Auto) Eos % (Auto) Baso % (Auto) Neut # (Auto) Lymph # (Auto) Sullivan # (Auto) Eos # (Auto) Baso # (Auto) Immature Gran # (Auto) PT INR APTT PTT Ratio Sodium Potassium Chloride Carbon Dioxide Anion Gap BUN Creatinine Est Cr Clr Drug Dosing Est GFR ( Amer) Est GFR (Non-Af Amer) BUN/Creatinine Ratio Glucose Calcium Total Bilirubin AST ALT Alkaline Phosphatase Troponin I High Sens 3.3 3.3 Total Protein Albumin Globulin Albumin/Globulin Ratio SARS-CoV-2, RNA, NAAT NEGATIVE 12/11/22 12/11/22 12/11/22 06:53 06:53 06:53 WBC 10.14 RBC 4.21 Hgb 12.7 Hct 38.0 MCV 90.3 MCH 30.2 MCHC 33.4 RDW Std Deviation 41.6 RDW Coeff of Mello 12.7 Plt Count 286 MPV 8.7 L Immature Gran % (Auto) 0.3 Neut % (Auto) 73.4 Lymph % (Auto) 16.9 Sullivan % (Auto) 7.3 Eos % (Auto) 1.8 Baso % (Auto) 0.3 Neut # (Auto) 7.45 H Lymph # (Auto) 1.71 Sullivan # (Auto) 0.74 H Eos # (Auto) 0.18 Baso # (Auto) 0.03 Immature Gran # (Auto) 0.03 PT INR APTT PTT Ratio Sodium 141 Potassium 4.4 Chloride 106 Carbon Dioxide 30 Anion Gap 5 BUN 13 Creatinine 0.99 Est Cr Clr Drug Dosing 72.5 Est GFR ( Amer) 72.8 Est GFR (Non-Af Amer) 62.8 BUN/Creatinine Ratio 13.1 Glucose 115 H Calcium 9.0 Total Bilirubin AST ALT Alkaline Phosphatase Troponin I High Sens 3.7 Total Protein Albumin Globulin Albumin/Globulin Ratio SARS-CoV-2, RNA, NAAT Diagnostic Findings Exercise echocardiogram performed today: Patient exercised for 3 minutes. She did achieve target heart rate and exercise was discontinued due to dyspnea. Shortly after she did develop her typical symptoms associated with ST segment depressions. Echo images did not reveal ischemia or inducible wall motion abnormality. PG Care Time/CCT Total # of Minutes Spent Total Time Spent with Patient: Total time spent is greater than 50% in coordination of care (as documented) at patient's floor/unit and/or counseling patient: Coding Diagnoses Chest pain R07.9 Hypertension I10 Hypertension type: unspecified Hyperlipidemia E78.5 Hyperlipidemia type: unspecified (2) Hypertension Hypertension type: unspecified Qualified Code(s): I10 - Essential (primary) hypertension (3) Hyperlipidemia Hyperlipidemia type: unspecified Qualified Code(s): E78.5 - Hyperlipidemia, unspecified
[2022-12-11] MEDS ORDERED: TICAGRELOR 90 MG TAB ONE (12:36)
[2022-12-11] MEDS ORDERED: ASPIRIN 81 MG CHEW ONE (12:36)
--- NOTE | 2022-12-11 12:38 | Cardiac Catheterization ---
[facility] Data: Film And Video Editor Cardiac Status Clinical evaluation leading to the procedure CAD Presenation: Positive Stress Test Diagnostic Physicians Name: Carlos Sewell MD Closure Device Recommendations: PCI without planned CABG Cardiac Cath Procedure Full Procedure Date December 11, 2022 Pre-Procedure Diagnosis Pre-Procedure Diagnosis: Positive Stress Test AUC Score AUC Score: 7 Post-Procedure Diagnosis Post-Procedure Diagnosis: Severe CAD Procedure(s) Performed Procedure(s) Performed: Coronary Angiography and Left Heart Cath Water Systems Designer Carlos Sewell MD Business Asst(s) none Estimated Blood Loss Estimated Blood Loss: 7cc Medication(s) Medication(s): Fentanyl, Heparin, Lidocaine 1%, Nicardipine, Nitroglycerin and Versed Summary of Findings Procedure performed: Selective coronary angiography, left heart catheterization Staff lean facilitator: Carlos Sewell MD Indication: The patient is a 57-year-old woman with a history of hypertension hyperlipidemia who has been complaining of exertional and nonexertional chest pain. She underwent exercise echocardiography this morning which was abnormal. She is therefore referred for coronary angiography. Procedure in detail: The patient was informed of the risks benefits and alternatives to the intended procedure, he understood such and wished to proceed. She was taken to the cardiac catheterization suite in a fasting state. Conscious sedation was administered per protocol and the patient was monitored electrocardiographically throughout today's procedure. The right wrist area was prepped and draped in usual sterile fashion. This area was anesthetized using subcutaneous administration of a lidocaine solution. The right radial artery was then accessed using Seldinger technique, and a arterial sheath was placed at this site over a guidewire. The sheath was used to facilitate passage of the cardiac catheter for coronary angiography and left heart catheterization. Coronary angiogram was then obtained in multiple orthogonal views prior to removal of the catheter. At the conclusion of the procedure the sheath was removed and hemostasis was achieved at the access site using manual pressure. The patient tolerated procedure well, there were no immediate complications. Equipment used: 5 [place] 4 Findings: Coronary angiography Left main: Left main coronary artery is normal in size and caliber. It bifurcated normally into the left anterior descending left circumflex. No dise ase in this vessel. Left anterior descending colon left anterior descending was a large transapical vessel. It produced a small first diagonal branch with approximately 50% ostial stenosis. There was a small to medium second diagonal and several additional diminutive diagonal branches. No other obstructive disease in this vessel. Left circumflex: Left circumflex was a nondominant vessel. He had had a 90% stenosis in its midportion prior to the bifurcation of the first and second OM branches. Some additional disease that was nonobstructive at the bifurcation of OM1 and the ongoing vessel. Right coronary artery: The right coronary artery was a dominant vessel producing the PDA. There was a long area of disease in the proximal to mid RCA prior to the bifurcation of the PL and PDA branches. Maximum stenosis 50 to 60%. Impression: Obstructive coronary disease involving the mid circumflex Nonobstructive disease involving the first diagonal branch and right coronary artery Right dominant coronary system No evidence of aortic stenosis Normal left ventricular filling pressures. Hemodynamics Rest Ao:: 111/47 mmHg Final Ao: 104/60 mmHg LV: 114/1 mmHg LVEDP 8 mmHg Recommendations Recommendations: PCI without planned CABG Specimens Specimens: None Radiation Exposure (mGy) 747 Contrast (mls) 30 Procedural Complication(s) None Disposition PCU I attest to the content of the Intraoperative Record and any orders documented therein. Any exceptions are noted below. [facility] Card Cath Procedure Codes Cardiac Catheterization Procedure 1: Cardiovascular Cath Procedures: 91822 Coronaries and LHC (+/-LV) Moderate Sedation Procedure 1: Sedation/Anesthesia: 97664 Mod Sedation by the same physician;Init15 Min Child Age 5 & Up Procedure 2: Sedation/Anesthesia: 57960 Mod Sedation by the same physician; Ea [id number] Minutes PG Care Time/CCT Total # of Minutes Spent Total Time Spent with Patient: Total time spent is greater than 50% in coordination of care (as documented) at patient's floor/unit and/or counseling patient:
--- NOTE | 2022-12-11 13:06 | XCELERA ---
[id number]
--- NOTE | 2022-12-11 13:11 | Electrocardiogram Report ---
Test Reason : Blood Pressure : / mmHG Vent. Rate : 078 BPM Atrial Rate : 078 BPM P-R Int : 150 ms QRS Dur : 080 ms QT Int : 372 ms P-R-T Axes : 032 067 065 degrees QTc Int : 424 ms Normal sinus rhythm Normal ECG When compared with ECG of 04-MAR-2019 15:51, No significant change was found Confirmed by Carlos Sewell ([id number]) on 12/11/2022 1:11:13 PM Referred By: Confirmed By:Sandro Sewell
[2022-12-11] MEDS ORDERED: hydrALAZINE HCL 20 MG/ML VIAL ONE ×2 (13:12→14:31)
--- NOTE | 2022-12-11 13:27 | Post Anesthesia Assessment ---
Date of Service December 11, 2022 Post Sedation Assessment Vital Signs Temp Pulse Pulse Pulse Resp BP Pulse Ox 12/11/22 11:04 71 12/11/22 08:36 37.0 C 76 18 133/75 94 12/11/22 03:45 36.7 C 69 16 114/68 94 12/10/22 22:20 70 12/10/22 22:34 36.7 C 71 18 146/72 H 96 12/10/22 22:10 36.7 C 74 16 140/76 96 12/10/22 16:24 75 12/10/22 16:00 69 17 97 12/10/22 15:30 72 17 98 12/10/22 15:06 72 12 99 12/10/22 15:11 O2 Del Method 12/11/22 11:04 12/11/22 08:36 Room Air 12/11/22 03:45 Room Air 12/10/22 22:20 12/10/22 22:34 Room Air 12/10/22 22:10 Room Air 12/10/22 16:24 12/10/22 16:00 12/10/22 15:30 12/10/22 15:06 12/10/22 15:11 Room Air Recovery Score Activity: Moves 4 extremities Respiration: Deep Breath/Cough Circulation: +/-20% PreAnes Value Consciousness: Fully Awake Oxygen Saturation: > 92% On Room Air Discharge Sedation Level of Care: Fast Track Phase II Post Sedation Plan On clinical assessment, the patient appears to have tolerated the sedation without complications. Patient is recovering as anticipated. Patient will continue to be monitored by nursing and may be discharged when sedation discharge criteria are met per below protocol. Upon Completions of procedure up to 15 minutes continue every 5 minute vital signs and the P.A.R. score; then discharge to a Phase I or Fast Track to Phase II per the following guidelines: * Discharge Patient to appropriate Phase II area if PAR is 8 or greater or return to pre- procedure baseline. The post - procedure orders will be as directed. * If PAR score is less than 8 or not return to pre-procedure baseline then patient will follow Phase I monitoring till PAR is reached for Phase II. The Phase I may be done in procedure room or may call to secure a Phase I area. * If naloxone or flumazenil are used for reversal, hold in Phase I for continued monitoring from when last reversal dose was given for a minimum of 60 minutes or longer pending the nurse and/or physician discretion of patient condition before discharge to Phase II. Please call the Sedation Physician to re-evaluate and complete post-note for discharge to Phase II area. Do NOT discharge from procedure sedation or Phase 1 until post- sedation evaluation note is complete by procedure /sedation MD Sedation Discharge Instructions to be given to the patient at discharge to home. [facility] [place] Procedure Codes (Charges) Indication for Procedure Indication for procedure: UNSTABLE ANGINA Sedation/Anesthesia Procedure 1: Sedation/Anesthesia: 71606 Mod Sedation by the same physician;Init15 Min Child Age 5 & Up (INITIAL 15 MIN) Total Sedation Time (minutes): 30 Procedure 2: Sedation/Anesthesia: 97042 Mod Sedation by the same physician; Ea [id number] Minutes (ADDITIONAL 15 MIN) Total Sedation Time (minutes): 30
--- NOTE | 2022-12-11 14:21 | Hospitalist Progress Note ---
Date of Service December 11, 2022 Assessment & Plan (1) Chest pain: Plan: 57-year-old female with extensive family history of [place], hyperlipidemia, hypertension who presents for evaluation of recurring chest pain at night, and shortness of breath with reduced exercise tolerance during the day. Chest pain, acute not clear if stable Troponin without rising trend EKG without acute findings of ischemia Moderate risk heart score abnormal stress test-> left heart cath-> circumflex stent DAPT, Statin, b demetrio tony I, change atenolol to metoprolol, elevate atorvastatin Gastritis, acute unclear if stable Patient taking up to 10 aspirin daily in addition to multiple forms of ibuprofen for shoulder pain without significant benefit. Counseled that these are all NSAIDs, and harmful to her stomach and be harmful to her heart and kidneys No JAMES on admission PPI, Pepcid, GI cocktail ordered Hypertension chronic and stable Hyperlipidemia chronic and stable Continue is Atimos/atorvastatin DVT prophylaxis: Lovenox Diet: Heart healthy, n.p.o. at midnight for stress test Disposition: Medical telemetry CODE STATUS: Full code (2) History of colon polyps: (3) Hypertension: (4) Gastritis: Admission and Anticipated Discharge Date Admission Date: December 10, 2022 Subjective pt is resting with her family, no further chest pain, no shortness of breath abnormal stress test for left heart cath Physical Exam Physical Exam: Awake alert appropriate Heart is regular Lungs are clear Results & Data Results & Data Vital Signs (Past 12 Hours) Vital Signs Temp Pulse Pulse Resp BP Pulse Ox O2 Del Method 12/11/22 14:01 98.1 F 71 18 174/84 H 97 Room Air 12/11/22 13:49 71 12/11/22 13:49 67 14 162/87 H 96 Room Air 12/11/22 13:35 71 12/11/22 13:35 66 14 154/84 H 96 Room Air 12/11/22 11:04 71 12/11/22 08:36 98.6 F 76 18 133/75 94 Room Air 12/11/22 03:45 98.1 F 69 16 114/68 94 Room Air Laboratory Results Reviewed CBC Reviewed PRP Discussed case personally with cardiology PG Care Time/CCT Total # of Minutes Spent Total Time Spent with Patient: Total time spent is greater than 50% in coordination of care (as documented) at patient's floor/unit and/or counseling patient: Coding Level of Care Code 65489 SUB INP/OBS CARE 50MIN Diagnoses Chest pain R07.9 History of colon polyps Z86.010 Hypertension I10 Hypertension type: unspecified Gastritis K29.70 (3) Hypertension Hypertension type: unspecified Qualified Code(s): I10 - Essential (primary) hypertension
[2022-12-11] MEDS ORDERED: hydrALAZINE HCL 20 MG/ML VIAL IV PRN ×2 (14:32→14:40)
[2022-12-11] MEDS ORDERED: oxyCODONE/ACETAMINOPHEN 5mg/325mg TAB PO PRN (14:34)
[2022-12-11] MEDS ORDERED: NITROGLYCERIN SL 0.4 MG/TAB TAB SL PRN (14:43)
[2022-12-11] MEDS ORDERED: ISOSORBIDE MONO EXTENDED REL 30 MG TABCR PO ONE (14:45)
[2022-12-11] MEDS ORDERED: hydrALAZINE HCL 20 MG/ML VIAL IV STA (14:49)
[2022-12-11] MEDS ORDERED: ONDANSETRON INJ 2 MG/ML 2 ML VIAL IV PRN (15:30)
[2022-12-11] MEDS ORDERED: ONDANSETRON INJ 2 MG/ML 2 ML VIAL ONE (15:36)
[2022-12-11] MEDS: EZETIMIBE 10 MG TABLET PO SCH (20:13)
[2022-12-11] MEDS: METOPROLOL TARTRATE 25 MG TAB PO SCH (20:14)
[2022-12-11] MEDS: TICAGRELOR 90 MG TAB PO SCH (20:15)
[2022-12-11] MEDS ORDERED: ATORVASTATIN 40 MG TAB PO SCH (21:00)
[2022-12-12] MEDS ORDERED: ACETAMINOPHEN 500 MG TAB PO STA (01:27)
[2022-12-12 06:09] LABS: Basophils # (auto) 0.03 K/uL (0-0.2); Basophils % (auto) 0.2 %; Eosinophils # (auto) 0.13 K/uL (0-0.50); Eosinophils % (auto) 0.9 %; Hematocrit (blood only) 34.9 % (37.0-47.0); Hemoglobin 11.9 g/dl (12.0-16.0); Immature Granulocytes # (auto) 0.07 K/uL (0.01-0.20); Immature Granulocytes % (auto) 0.5 %; Lymphocytes # (auto) 1.94 K/uL (1.2-3.4); Lymphocytes % (auto) 13.9 %; Mean Corpuscular Hemoglobin 30.1 pg (25.0-34.0); Mean Corpuscular Hgb Conc 34.1 g/dL (32.0-36.0); Mean Corpuscular Volume 88.1 fL (80.0-100.0); Mean Platelet Volume 8.7 fL (9.4-12.4); Monocytes # (auto) 1.05 K/uL (0.11-0.59); Monocytes % (auto) 7.5 %; Neutrophils # (auto) 10.76 K/uL (1.40-6.50); Platelet Count 304 K/uL (130-400); RDW Standard Deviation 42.2 fL (36.4-46.3); Red Blood Count 3.96 M/uL (4.20-5.40); White Blood Count 13.98 K/ul (4.8-10.8)
[2022-12-12 06:24] LABS: Calcium 8.8 mg/dl (8.6-10.3); Potassium 4.3 mmol/L (3.5-5.1)
[2022-12-12 06:30] LABS: BUN Creatinine Ratio 18.2 (10-20); Creatinine Clr Calc Pharmacy 72.5 ml/min; Est GFR (African American) 72.8 ml/min; Est GFR (Non-African American) 62.8 ml/min
[2022-12-12] MEDS ORDERED: ASPIRIN 81 MG ECTAB PO SCH (09:00)
[2022-12-12] MEDS ORDERED: ISOSORBIDE MONO EXTENDED REL 30 MG TABCR PO SCH (09:00)
[2022-12-12] MEDS: lisinopril 10 MG TAB PO SCH (09:31)
[2022-12-12] MEDS: METOPROLOL TARTRATE 25 MG TAB PO SCH (09:32)
[2022-12-12] MEDS: NICOTINE 14 MG/24 HR PATCH TD SCH (09:32)
[2022-12-12] MEDS: PANTOprazole 40 MG in SYRINGE 0 ML IV SCH (09:33)
[2022-12-12] MEDS: TICAGRELOR 90 MG TAB PO SCH (09:34)
[2022-12-12] MEDS: FAMOTIDINE 20 MG in SYRINGE 3 ML IV SCH (09:38)
--- NOTE | 2022-12-12 10:09 | Electrocardiogram Report ---
Test Reason : Blood Pressure : / mmHG Vent. Rate : 072 BPM Atrial Rate : 072 BPM P-R Int : 164 ms QRS Dur : 076 ms QT Int : 396 ms P-R-T Axes : 034 067 036 degrees QTc Int : 433 ms Poor data quality, interpretation may be adversely affected Normal sinus rhythm Normal ECG When compared with ECG of 10-DEC-2022 13:07, No significant change was found Confirmed by Carlos Sewell ([id number]) on 12/12/2022 10:08:59 AM Referred By: Sandra Henning Confirmed By:Sandro Sewell
[2022-12-12] MEDS ORDERED: ACETAMINOPHEN 325 MG TAB PO PRN (12:13)
--- NOTE | 2022-12-12 14:28 | Discharge Summary ---
Date of Service December 12, 2022 Discharge Data Allergies Allergy/AdvReac Type Severity Reaction Status Date / Time sulfamethoxazole Allergy Mild Hives Verified 12/10/22 16:25 [From Bactrim] trimethoprim [From Bactrim] Allergy Mild Hives Verified 12/10/22 16:25 Penicillins Allergy Unknown THROAT Verified 12/10/22 16:25 CLOSING, HIVES Consultations 12/10/22 17:10 ED Decision to Admit Stat 12/11/22 10:27 Consult Cardiology Routine Procedures Performed Operation Date: 12/11/22 13:00 Actual Procedures p Cineradiography w/Routine Exam - Carlos Sewell MD p Cath, Left with Cors and Vent - Carlos Sewell MD s Drug Eluting Stent SGl Vessel - Edward Paige MD, PhD Ordered Studies 12/11/22 11:42 CL Cath Imgs for PACS use only Routine Hospital Course (1) Chest pain: 57-year-old female with extensive family history of [place], hyperlipidemia, hypertension who presents for evaluation of recurring chest pain at night, and shortness of breath with reduced exercise tolerance during the day. Chest pain, acute not clear if stable Troponin without rising trend EKG without acute findings of ischemia Moderate risk heart score abnormal stress test-> left heart cath-> circumflex stent DAPT, Statin, b demetrio tony I, change atenolol to metoprolol, elevate atorvastatin Gastritis, acute unclear if stable Patient taking up to 10 aspirin daily in addition to multiple forms of ibuprofen for shoulder pain without significant benefit. Counseled that these are all NSAIDs, and harmful to her stomach and be harmful to her heart and kidneys No JAMES on admission PPI, Pepcid, GI cocktail ordered Hypertension chronic and stable Hyperlipidemia chronic and stable Continue is Atimos/atorvastatin DVT prophylaxis: Lovenox Diet: Heart healthy, n.p.o. at midnight for stress test Disposition: Medical telemetry CODE STATUS: Full code (2) History of colon polyps: (3) Hypertension: (4) Gastritis: Discharge Plan Discharge Items Reason For Visit: CP R/O, PENDING TREADMILL STRESS Discharge Diagnosis: cp Activity: Resume your previous activity Non-emergency contact: Primary Care Provider Call non-emergency contact if: you have any medication questions Follow-up/Referrals: Sandra Henning DO [Primary Care Provider] - Diet: Heart Healthy Addtl Attending Provider Instructions: Home Care: * Take your medications exactly as directed. Don't skip doses. * Remember that recovery after a heart attack takes time. Plan to rest for at lease 4-8 weeks while you recover. Then return to normal activity when your doctor says it's okay. * Ask your doctor about joining a heart rehabilitation program. * Tell your doctor if you are feeling depressed. Feelings of sadness are common after a heart attack, but it is important that you speak to someone if you are feeling overwhelmed by these feelings. * If you are having chest pain, call 911 for an ambulance. Do NOT drive yourself to the hospital. * Ask your family members to learn CPR. * Learn to take your own blood pressure and pulse. Keep a record of your results. Ask your doctor when you should seek emergency medical attention. He or she will tell you which blood pressure reading is dangerous. Lifestyle Changes: * Maintain a healthy weight. Get help to lose any extra pounds. * Cut back on salt. * Limit canned, dried, packaged, and fast foods. * Don't add salt to your food. * Season foods with herbs instead of salt when you cook. * Break the smoking habit. Enroll in a stop-smoking program to improve your chances of success. * Limit fatty foods. * Ask your doctor about having your lipid levels checked regularly. * Build up your activity according to your doctor's recommendation. * Ask your doctor when it's okay to resume sexual activity. * Tell your doctor about any erectile dysfunction (ED) medication you are taking. Some ED medications are not safe if you take certain heart medications. * Try to manage stress. Follow Up: It is important for you to keep your follow up appointments with your medical provider. Pending Studies at Discharge: No Stand-Alone Forms: My [facility] [employer], Smoking Cessation Medications and DC Order Prescriptions: New Brilinta 90 mg Tablet 90 mg PO BID Qty: 60 0RF isosorbide mononitrate 30 mg Tablet Extended Release 24 Hr 30 mg PO QAM Qty: 30 0RF metoprolol succinate 50 mg tablet extended release 24 hr 50 mg PO PM Qty: 30 0RF aspirin 81 mg Tablet,Delayed Release (Dr/Ec) 81 mg PO QAM Qty: 30 0RF atorvastatin 40 mg Tablet 40 mg PO PM Qty: 30 0RF Continued lisinopril 10 mg tablet 10 mg PO QAM Qty: 30 5RF nicotine 14 mg/24 hr patch 24 hour 1 patch transdermal DAILY Qty: 28 0RF betamethasone dipropionate 0.05 % cream 1 applic topical BID PRN (Reason: rash) Qty: 45 1RF Rx Instructions: Apply to hands Discontinued atenolol 50 mg tablet 50 mg PO QAM Qty: 30 5RF atorvastatin 10 mg tablet 10 mg PO PM Qty: 30 5RF ezetimibe 10 mg tablet 10 mg PO HS Admission Data Admit Date/Time: 12/10/22 16:37 Attending Provider: Jerman Kate Admit Provider: Dakota Delarosa Primary Care Provider: Sandra Henning Other Providers: Dakota Delarosa ; Carlos Sewell Coding Diagnoses Chest pain R07.9 History of colon polyps Z86.010 Hypertension I10 Hypertension type: unspecified Gastritis K29.70
--- NOTE | 2022-12-12 16:40 | Cardiac Catheterization ---
[facility] Data: Liability Claims Representative Cardiac Status Clinical evaluation leading to the procedure CAD Presenation: Positive Stress Test Anginal Classification: CCS III Heart Failure: No Cardiogenic Shock within 24 Hours: No Cardiac Arrest within 24 Hours: No Diagnostic Physicians Name: Edward Paige MD, PhD Closure Device Percutaneous Entry Location: Radial Closure Device: Radial Band Recommendations: PCI without planned CABG PCI Indication: + Stress Test Lesion Segment Name: Mid circumflex Culprit Artery: Yes Stenosis Prior to Rx (%): 90% Chronic Total Occlusion: No Previously Treated Lesion: No Lesion Complexity: High/C Lesion Length (mm): 24 mm Thrombus Present: No Bifurcation Lesion: Yes Guidewire Across Lesion: Yes Cardiac Cath Procedure Full Procedure Date December 11, 2022 Pre-Procedure Diagnosis Pre-Procedure Diagnosis: Positive Stress Test AUC Score AUC Score: 7 Post-Procedure Diagnosis Post-Procedure Diagnosis: Severe CAD and Successful PCI Procedure(s) Performed Procedure(s) Performed: Drug Eluting Stent Sales Technician Edward Paige MD, PhD Shot Man(s) none Estimated Blood Loss Estimated Blood Loss: 10 ml Medication(s) Medication(s): Fentanyl, Heparin, Lidocaine 1%, Nicardipine, Nitroglycerin and Versed Summary of Findings Brief description: Patient was already shaved and prepped in a sterile fashion. She had a 6 Korean radial artery glide sheath in the right wrist. She had just undergone diagnostic catheterization performed by Dr. Sewell. Sedation was with fentanyl and Versed. PCI of the left circumflex was undertaken using a 6 [place] EBU 3.0 guide catheter engaged in the left main coronary. Through this, a BMW universal guidewire was advanced and positioned distally in the circumflex beyond the lesion. ACT was checked and IV heparin was provided as needed to maintain therapeutic anticoagulation. Predilatation of the lesion using a 2.5 x 12 mm trek balloon inflated multiple times at 10 nataly, 14 nataly, and 14 nataly. 2.5 x 23 mm zbigniew point drug-eluting stent was then advanced and positioned across the lesion where it was deployed initially at 9 nataly followed by a second inflation to 12 nataly. The distal edge bisected a small nonocclusive plaque. However, we decided that we should cover this area to avoid thrombosis. Therefore, a 2.5 x 8 mm Tim drug-eluting stent was advanced and positioned in an overlap fashion across this lesion. It was deployed at 12 nataly. Stent balloon was deflated and then across the overlap segment was dilated to 15 nataly. Stent balloon was removed. The more proximal portion of the diseased vessel was much larger in size, therefore, a 3.0 x 12 mm zbigniew point drug-eluting stent was advanced and passed across this portion of the lesion with its distal edge just within the proximal edge of the initial stent (overlapped). The stent was deployed at 14 nataly. The stent balloon was then deflated and advanced across the overlap segment so that it also affected the proximal portion of the initial stent and this was dilated to 13 nataly. Finally, the most proximal portion of the most proximal stent was somewhat undersized for the vessel. Therefore it was postdilated using a 3.25 x 8 mm NC trek balloon. Initial inflation to 12 nataly with a second inflation up to 15 nataly at the proximal stent edge. The balloon was removed and angiography was performed. The guidewire was removed and final angiographic evaluation was performed. The guide catheter was then removed. Radial artery sheath was removed. Hemostasis was obtained using the TR band. Patient was hemodynamically stable and asymptomatic. She received oral anticoagulation with Brilinta 180 mg p.o. x1 and aspirin. She was then returned to the recovery area. This ended the case. Findings: 0% residual stenosis post PCI following implantation of 3 overlapped drug- eluting stents in the circumflex. MATTEO-3 flow post PCI No evidence of dissection or perforation post PCI Summary: 1. Severe, long mid circumflex stenosis with significant luminal diameter difference between the normal proximal vessel and the normal distal vessel. 2. Successful PCI of the circumflex with 3 overlapped drug-eluting stents postdilated and tapered such that the distal stent diameter was 2.5 mm and the most proximal stent diameter was 3.65 mm. 3. Dual antiplatelet therapy with aspirin and Brilinta for at least 1 year, preferably up to 2 years. 4. Guideline directed medical therapy for secondary prevention of coronary disease as determined by primary manager applied. Hemodynamics Rest Ao:: 143/79 mmHg, mean 103 mmHg Final Ao: 194/104 mmHg, mean 137 mmHg LV: Not performed Recommendations Recommendations: PCI without planned CABG Specimens Specimens: None Radiation Exposure (mGy) 2454 mGy, fluoroscopy time 12.4 minutes Contrast (mls) 130 mL Anesthesia 2 mg IV Versed, 75 mcg IV fentanyl Procedural Complication(s) None Disposition PCU I attest to the content of the Intraoperative Record and any orders documented therein. Any exceptions are noted below. [facility] Card Cath Procedure Codes Moderate Sedation Procedure 1: Sedation/Anesthesia: 42233 Mod Sedation by a different physician ;Init15 Min Child Age 5&Up (Start 1245) Procedure 2: Sedation/Anesthesia: 96823 Mod Sedation by a different physician;Ea Additional 15 Minutes (End time 1315 (additional 15 minutes)) PG Care Time/CCT Total # of Minutes Spent Total Time Spent with Patient: Total time spent is greater than 50% in coordination of care (as documented) at patient's floor/unit and/or counseling patient:
== END 2022-12-12 15:10 | disposition home or self-care (01) ==
LOC: EDINP 12:57 → ED 12:57 → SUATTDRO 16:37 → EDINP 17:35 → 2E 22:15